=== PATIENT | female | born 1940 | race Caucasian/White ===

== ENCOUNTER 2017-11-26 20:25 | Inpatient (IN) | payer MEDICARE, BC ==
--- NOTE | 2017-11-26 21:08 | EDM.PDOC ---
ED HPI GENERAL MEDICAL PROBLEM - General Chief Complaint: General Stated Complaint: FELL Time Seen by Provider: 11/26/17 20:44 Source of Information: Reports: Patient, Family, RN Notes Reviewed History Limitations: Reports: Physical Impairment - History of Present Illness INITIAL COMMENTS - FREE TEXT/NARRATIVE: 77-year-old female presents emergency department today via EMS services after being found at home on the ground. Family member are present. No murmurs states she's been confused for the last couple of years prior state of confusion is close to baseline there unknown how long she is been down on the ground she is complaining of nothing however does have a bruise on her right arm she is orientated to self only, the majority of this history and physical was taken from EMS and family members, last visit to a physician was 4 years ago - Related Data Allergies Allergy/AdvReac Type Severity Reaction Status Date / Time No Known Allergies Allergy Verified 11/26/17 20:48 Home Meds: Home Meds NK [No Known Home Meds] 11/26/17 [History] Past Medical History Respiratory History: Reports: COPD Genitourinary History: Reports: Urinary Incontinence [employer] History: Reports: Musculoskeletal History: Reports: Back Pain, Chronic, Osteoporosis Other Musculoskeletal History: degenerative joint disease Social & Family History - Tobacco Use Smoking Status *Q: Unknown Ever Smoked ED ROS GENERAL - Review of Systems Review Of Systems: Unable To Obtain ED EXAM, GENERAL - Physical Exam Exam: See Below Free Text/Narrative:: General: Elderly female pleasant and cooperative not in any distress, alert and oriented one HEENT: head is atraumatic normocephalic, eyes pupils equal round reactive to light, sclera clear no conjunctivitis appreciated. Ears blocked by cerumen bilaterally canals are clear. Nose no septal deviation, nares are clear , no blood present. Mouth mucosa is dry and pink no erythema or exudate noted in soft palate, tongue is midline uvula is midline, dentition is intact. Neck: Supple no thyromegaly no tracheal deviation. Nodes: Cervical nodes subclavicular nodes nontender no palpable lymphadenopathy noted. Lungs: Decreased breath sounds with scant wheeze mid to lower lung cas[place] bilaterally on expiratory phase CV: Regular rate and rhythm S1 and S2 appreciated no murmurs rubs or gallops noted. Abdomen: Soft, nontender, no palpable masses or organomegaly appreciated, no distention no guarding bowel sounds are present, . Neuro: Cranial nerves II through XII grossly intact Skin: Warm and dry, intact Extremities: No lower extremity edema appreciated, pedal pulse is +2. Course - Vital Signs Last Recorded V/S: Last Vital Signs Temp 97.7 F 11/26/17 20:32 Pulse 107 H 11/26/17 22:46 Resp 16 11/26/17 20:32 BP 129/75 11/26/17 22:46 Pulse Ox 91 L 11/26/17 22:46 - Orders/Labs/Meds Orders: Active Orders 24 hr Category Date Time Status Chest 1V Frontal [CR] Urgent Exams 11/26/17 21:06 Taken Forearm 2V Rt [CR] Stat Exams 11/26/17 21:02 Taken Head wo Cont [CT] Urgent Exams 11/26/17 21:00 Taken CULTURE BLOOD [BC] Urgent Lab 11/26/17 23:00 Ordered CULTURE BLOOD [BC] Urgent Lab 11/26/17 23:00 Ordered CULTURE URINE [RM] Urgent Lab 11/26/17 22:59 Ordered Levofloxacin/Dextrose 5%-Water [Levaquin in D5W 500 MG/ Med 11/26/17 22:59 Ordered 100 ML] 500 mg Premix Bag 1 bag IV ONETIME Blood Culture x2 Reflex Set [OM.PC] Urgent Oth 11/26/17 23:00 Ordered Medication Orders Levofloxacin/Dextrose 500 mg/ (Premix) 100 mls @ 100 mls/hr IV ONETIME ONE Stop: 11/26/17 23:58 Labs: Laboratory Tests 11/26/17 11/26/17 11/26/17 Range/Units 21:52 21:52 21:52 WBC 8.5 (4.5-11.0) K/uL RBC 4.53 (3.30-5.50) M/uL Hgb 14.2 (12.0-15.0) g/dL Hct 45.0 (36.0-48.0) % MCV 99 H (80-98) fL MCH 31 (27-31) pg MCHC 32 (32-36) % Plt Count 389 (150-400) K/uL Neut % (Auto) 79 H (36-66) % Lymph % (Auto) 11 L (24-44) % [place] % (Auto) 9 H (2-6) % Eos % (Auto) 0 L (2-4) % Baso % (Auto) 0 (0-1) % Sodium 144 (140-148) mmol/L Potassium 3.8 (3.6-5.2) mmol/L Chloride 106 (100-108) mmol/L Carbon Dioxide 28 (21-32) mmol/L Anion Gap 9.7 (5.0-14.0) mmol/L BUN 46 H (7-18) mg/dL Creatinine 1.0 (0.6-1.0) mg/dL Est Cr Clr Drug Dosing 41.33 mL/min Estimated GFR (MDRD) 54 L (>60) Glucose 116 H (74-106) mg/dL Lactic Acid (0.4-2.0) mmol/L Calcium 9.5 (8.5-10.1) mg/dL Total Bilirubin 0.6 (0.2-1.0) mg/dL AST 34 (15-37) U/L ALT 35 (12-78) U/L Alkaline Phosphatase 75 (46-116) U/L Ammonia 2 L (11-32) mmol/L Creatine Kinase (26-192) U/L Total Protein 7.9 (6.4-8.2) g/dL Albumin 3.7 (3.4-5.0) g/dL Globulin 4.2 H (2.3-3.5) g/dL Albumin/Globulin Ratio 0.9 L (1.2-2.2) TSH, Ultra Sensitive 4.490 H (0.358-3.740) uIU/mL Urine Color Urine Appearance Urine pH (4.5-8.0) Ur Specific [place] (1.008-1.030) Urine Protein (NEGATIVE) mg/dL Urine Glucose (UA) (NEGATIVE) mg/dL Urine Ketones (NEGATIVE) mg/dL Urine Occult Blood (NEGATIVE) Urine Nitrite (NEGATIVE) Urine Bilirubin (NEGATIVE) Urine Urobilinogen (NORMAL) mg/dL Ur Leukocyte Esterase (NEGATIVE) Urine RBC (0-5) Urine WBC (0-5) Ur Epithelial Cells Amorphous Sediment Urine Bacteria Urine Mucus Urine Other 11/26/17 11/26/17 11/26/17 Range/Units 21:52 21:52 21:56 WBC (4.5-11.0) K/uL RBC (3.30-5.50) M/uL Hgb (12.0-15.0) g/dL Hct (36.0-48.0) % MCV (80-98) fL MCH (27-31) pg MCHC (32-36) % Plt Count (150-400) K/uL Neut % (Auto) (36-66) % Lymph % (Auto) (24-44) % [place] % (Auto) (2-6) % Eos % (Auto) (2-4) % Baso % (Auto) (0-1) % Sodium (140-148) mmol/L Potassium (3.6-5.2) mmol/L Chloride (100-108) mmol/L Carbon Dioxide (21-32) mmol/L Anion Gap (5.0-14.0) mmol/L BUN (7-18) mg/dL Creatinine (0.6-1.0) mg/dL Est Cr Clr Drug Dosing mL/min Estimated GFR (MDRD) (>60) Glucose (74-106) mg/dL Lactic Acid 2.2 H (0.4-2.0) mmol/L Calcium (8.5-10.1) mg/dL Total Bilirubin (0.2-1.0) mg/dL AST (15-37) U/L ALT (12-78) U/L Alkaline Phosphatase (46-116) U/L Ammonia (11-32) mmol/L Creatine Kinase 510 H (26-192) U/L Total Protein (6.4-8.2) g/dL Albumin (3.4-5.0) g/dL Globulin (2.3-3.5) g/dL Albumin/Globulin Ratio (1.2-2.2) TSH, Ultra Sensitive (0.358-3.740) uIU/mL Urine Color Yellow Urine Appearance Clear Urine pH 5.0 (4.5-8.0) Ur Specific [place] 1.020 (1.008-1.030) Urine Protein 30 H (NEGATIVE) mg/dL Urine Glucose (UA) Normal (NEGATIVE) mg/dL Urine Ketones 40 (NEGATIVE) mg/dL Urine Occult Blood Small (NEGATIVE) Urine Nitrite Positive H (NEGATIVE) Urine Bilirubin Small (NEGATIVE) Urine Urobilinogen Normal (NORMAL) mg/dL Ur Leukocyte Esterase Small (NEGATIVE) Urine RBC 0-5 (0-5) Urine WBC 5-10 H (0-5) Ur Epithelial Cells Few Amorphous Sediment Few Urine Bacteria Many Urine Mucus Few Urine Other See note Meds: Medications Generic Name Dose Route Start Last Admin Trade Name Farhad PRN Reason Stop Dose Admin Levofloxacin/Dextrose 500 mg/ 100 mls @ 100 mls/hr 11/26/17 22:59 Premix IV 11/26/17 23:58 ONETIME ONE Departure - Departure Time of Disposition: 23:03 Disposition: Admitted As Inpatient 67 Condition: Fair Clinical Impression: UTI, Urinary tract infectious disease, Confusion Fall Qualifiers: Encounter type: initial encounter Qualified Code(s): W19.XXXA - Unspecified fall, initial encounter - Discharge Information Referrals: Trey Thomas MD [Primary Care Provider] - Forms: ED Department Discharge - My Orders Last 24 Hours: My Active Orders 11/26/17 21:00 Head wo Cont [CT] Urgent 11/26/17 21:02 Forearm 2V Rt [CR] Stat 11/26/17 21:06 Chest 1V Frontal [CR] Urgent 11/26/17 22:59 CULTURE URINE [RM] Urgent Levofloxacin/Dextrose 5%-Water [Levaquin in D5W 500 MG/100 ML] 500 mg Premix Bag 1 bag IV ONETIME 11/26/17 23:00 CULTURE BLOOD [BC] Urgent CULTURE BLOOD [BC] Urgent Blood Culture x2 Reflex Set [OM.PC] Urgent - Assessment/Plan Last 24 Hours: My Active Orders 11/26/17 21:00 Head wo Cont [CT] Urgent 11/26/17 21:02 Forearm 2V Rt [CR] Stat 11/26/17 21:06 Chest 1V Frontal [CR] Urgent 11/26/17 22:59 CULTURE URINE [RM] Urgent Levofloxacin/Dextrose 5%-Water [Levaquin in D5W 500 MG/100 ML] 500 mg Premix Bag 1 bag IV ONETIME 11/26/17 23:00 CULTURE BLOOD [BC] Urgent CULTURE BLOOD [BC] Urgent Blood Culture x2 Reflex Set [OM.PC] Urgent Plan: Assessment Acuity = acute Site and laterality = confusion with urinary tract infection Etiology = bacterial cause for urinary tract infection probable underlying chronic small vessel ischemic disease for confusion Manifestations = none Location of injury = Home Lab values = CBC unremarkable, lactic acid mildly elevated 2.2 consistent lactic acidosis, CK mildly elevated at 510 thyroid mildly elevated 4.49 probable hypothyroidism, urinalysis reveals positive nitrates 5-10 wbc's consists of pyuria and many bacteria cultures pending, CT scan of the head demonstrates no acute process but does have atrophy probably consistent with small vessel ischemic disease Plan Called discussed case with Dr. Dominguez physician aviation safety equipment technician he agreed to come and evaluate patient hospital plan is for admission she will be started on antibiotics of levofloxacin as well as IV fluids also placement will need to be addressed at a later date This note was dictated using [employer] voice recognition software please call with any questions on syntax or grammar.
[2017-11-26] MEDS ORDERED: Levofloxacin/Dextrose 5%-Water 500 MG in Premix Bag 1 BAG IV ONE (22:59)
[2017-11-26] MEDS ORDERED: Lactated Ringers 1,000 ML IV ONE (23:06)
[2017-11-26] MEDS ORDERED: Levofloxacin/Dextrose 5%-Water 500 MG in Premix Bag 1 BAG IV SCH (23:15)
--- NOTE | 2017-11-27 08:41 | CR ---
Forearm 2V Rt CLINICAL HISTORY: Pain, fall FINDINGS: There is no acute fracture within the forearm. There is some mild periarticular spurring a t the elbow. IMPRESSION: No fracture Mild degenerative changes
--- NOTE | 2017-11-27 09:02 | CR ---
CHEST: AP CLINICAL HISTORY:Wheezing COMPARISON:None FINDINGS: Heart size and pulmonary vascularity are normal. There are atherosclerotic changes in the aorta.. Some mild interstitial prominence which is likely chronic. Impression: No acute cardiopulmonary process
[2017-11-27] MEDS: cefTRIAXone 1 GM in Sodium Chloride 0.9% 50 ML IV SCH (10:52)
--- NOTE | 2017-11-27 11:53 | PCM.PN ---
- General Info Date of Service: 11/27/17 Subjective Update: Ms. Caldwell is a 77-year-old woman who was admitted through the emergency department early this morning by Dr. Dominguez. She had fallen at home and was found by family. CK level mildly elevated on admission. She reported some pain in her arm but x-rays are negative for any evidence of fracture. She has a history of progressive dementia and does not recall the circumstances of her fall. Because of dementia and is unable to provide specific information concerning symptoms or review of systems. - Patient Data Vitals - Most Recent: Last Vital Signs Temp 98.2 F 11/27/17 11:24 Pulse 91 11/27/17 11:24 Resp 17 11/27/17 11:24 BP 130/72 11/27/17 11:24 Pulse Ox 96 11/27/17 11:24 Weight - Most Recent: 174 lb I&O - Last 24 Hours: Intake & Output 11/26/17 11/27/17 11/27/17 22:59 06:59 14:59 Intake Total 100 Balance 100 Lab Results Last 24 Hours: Laboratory Results - last 24 hr 11/26/17 11/26/17 11/26/17 Range/Units 21:52 21:52 21:52 WBC 8.5 (4.5-11.0) K/uL RBC 4.53 (3.30-5.50) M/uL Hgb 14.2 (12.0-15.0) g/dL Hct 45.0 (36.0-48.0) % MCV 99 H (80-98) fL MCH 31 (27-31) pg MCHC 32 (32-36) % Plt Count 389 (150-400) K/uL Neut % (Auto) 79 H (36-66) % Lymph % (Auto) 11 L (24-44) % [place] % (Auto) 9 H (2-6) % Eos % (Auto) 0 L (2-4) % Baso % (Auto) 0 (0-1) % Sodium 144 (140-148) mmol/L Potassium 3.8 (3.6-5.2) mmol/L Chloride 106 (100-108) mmol/L Carbon Dioxide 28 (21-32) mmol/L Anion Gap 9.7 (5.0-14.0) mmol/L BUN 46 H (7-18) mg/dL Creatinine 1.0 (0.6-1.0) mg/dL Est Cr Clr Drug Dosing 41.33 mL/min Estimated GFR (MDRD) 54 L (>60) Glucose 116 H (74-106) mg/dL Lactic Acid (0.4-2.0) mmol/L Calcium 9.5 (8.5-10.1) mg/dL Total Bilirubin 0.6 (0.2-1.0) mg/dL AST 34 (15-37) U/L ALT 35 (12-78) U/L Alkaline Phosphatase 75 (46-116) U/L Ammonia 2 L (11-32) mmol/L Creatine Kinase (26-192) U/L Total Protein 7.9 (6.4-8.2) g/dL Albumin 3.7 (3.4-5.0) g/dL Globulin 4.2 H (2.3-3.5) g/dL Albumin/Globulin Ratio 0.9 L (1.2-2.2) TSH, Ultra Sensitive 4.490 H (0.358-3.740) uIU/mL Urine Color Urine Appearance Urine pH (4.5-8.0) Ur Specific [place] (1.008-1.030) Urine Protein (NEGATIVE) mg/dL Urine Glucose (UA) (NEGATIVE) mg/dL Urine Ketones (NEGATIVE) mg/dL Urine Occult Blood (NEGATIVE) Urine Nitrite (NEGATIVE) Urine Bilirubin (NEGATIVE) Urine Urobilinogen (NORMAL) mg/dL Ur Leukocyte Esterase (NEGATIVE) Urine RBC (0-5) Urine WBC (0-5) Ur Epithelial Cells Amorphous Sediment Urine Bacteria Urine Mucus Urine Other 11/26/17 11/26/17 11/26/17 Range/Units 21:52 21:52 21:56 WBC (4.5-11.0) K/uL RBC (3.30-5.50) M/uL Hgb (12.0-15.0) g/dL Hct (36.0-48.0) % MCV (80-98) fL MCH (27-31) pg MCHC (32-36) % Plt Count (150-400) K/uL Neut % (Auto) (36-66) % Lymph % (Auto) (24-44) % [place] % (Auto) (2-6) % Eos % (Auto) (2-4) % Baso % (Auto) (0-1) % Sodium (140-148) mmol/L Potassium (3.6-5.2) mmol/L Chloride (100-108) mmol/L Carbon Dioxide (21-32) mmol/L Anion Gap (5.0-14.0) mmol/L BUN (7-18) mg/dL Creatinine (0.6-1.0) mg/dL Est Cr Clr Drug Dosing mL/min Estimated GFR (MDRD) (>60) Glucose (74-106) mg/dL Lactic Acid 2.2 H (0.4-2.0) mmol/L Calcium (8.5-10.1) mg/dL Total Bilirubin (0.2-1.0) mg/dL AST (15-37) U/L ALT (12-78) U/L Alkaline Phosphatase (46-116) U/L Ammonia (11-32) mmol/L Creatine Kinase 510 H (26-192) U/L Total Protein (6.4-8.2) g/dL Albumin (3.4-5.0) g/dL Globulin (2.3-3.5) g/dL Albumin/Globulin Ratio (1.2-2.2) TSH, Ultra Sensitive (0.358-3.740) uIU/mL Urine Color Yellow Urine Appearance Clear Urine pH 5.0 (4.5-8.0) Ur Specific [place] 1.020 (1.008-1.030) Urine Protein 30 H (NEGATIVE) mg/dL Urine Glucose (UA) Normal (NEGATIVE) mg/dL Urine Ketones 40 (NEGATIVE) mg/dL Urine Occult Blood Small (NEGATIVE) Urine Nitrite Positive H (NEGATIVE) Urine Bilirubin Small (NEGATIVE) Urine Urobilinogen Normal (NORMAL) mg/dL Ur Leukocyte Esterase Small (NEGATIVE) Urine RBC 0-5 (0-5) Urine WBC 5-10 H (0-5) Ur Epithelial Cells Few Amorphous Sediment Few Urine Bacteria Many Urine Mucus Few Urine Other See note Med Orders - Current: Current Medications Aspirin (Ecotrin) 325 mg PO DAILY GIANNI Diphtheria/Tetanus/Acell Pertussis (Adacel) 0.5 ml IM .ONCE ONE Stop: 11/28/17 09:01 Ceftriaxone Sodium 1 gm/ (Sodium Chloride) 50 mls @ 100 mls/hr IV Q24H REPLACED BY [facility] Last Admin: 11/27/17 10:52 Dose: 100 mls/hr Discontinued Medications Levofloxacin/Dextrose 500 mg/ (Premix) 100 mls @ 100 mls/hr IV ONETIME ONE Stop: 11/26/17 23:58 Last Admin: 11/27/17 00:34 Dose: Not Given Lactated Ringer's (Ringers, Lactated) 1,000 mls @ 100 mls/hr IV BOLUS ONE Stop: 11/27/17 09:05 Last Admin: 11/27/17 00:20 Dose: 100 mls/hr Levofloxacin/Dextrose 500 mg/ (Premix) 100 mls @ 100 mls/hr IV Q24H REPLACED BY [facility] Last Admin: 11/27/17 00:20 Dose: 100 mls/hr Influenza Virus Vaccine (Pharmacy To Dose - Influenza Vaccine) 1 each IM ONETIME ONE Stop: 11/28/17 01:18 - Exam Quality Assessment: DVT Prophylaxis General: Alert, Cooperative, No Acute Distress Lungs: Clear to Auscultation, Normal Respiratory Effort Cardiovascular: Regular Rate, Regular Rhythm, No Murmurs GI/Abdominal Exam: Soft, Non-Tender, No Organomegaly, No Distention - Problem List Review Problem List Initiated/Reviewed/Updated: Yes - My Orders Last 24 Hours: My Active Orders 11/27/17 01:18 Vaccines to be Administered [RC] PER UNIT ROUTINE 11/27/17 10:30 cefTRIAXone [Rocephin] 1 gm Sodium Chloride 0.9% [Normal Saline] 50 ml IV Q24H 11/28/17 09:00 Aspirin [Ecotrin] 325 mg PO DAILY Diphth,Pertuss(Acell),Tet Vac [Adacel] 0.5 ml IM .ONCE ONE - Plan Plan:: ASSESSMENT AND PLAN FALL AT HOME-associated with mild elevation in CK, no other obvious injuries identified on evaluation. -May require retirement placement on discharge -Repeat CK level in a.m. PROGRESSIVE DEMENTIA -Melatonin 9 mg by mouth daily at bedtime URINARY TRACT INFECTION -Discontinue levofloxacin -Ceftriaxone 1 g IV every 24 hours -Urine culture pending MILD ELEVATION IN TSH -Free T4 and free T3 level in a.m. MAINTENANCE ISSUES -DVT prophylaxis; Lovenox 40 mg subcutaneous daily -GI prophylaxis; not indicated -Weeks catheter; not indicated -Nutrition; regular diet -Nicotine dependence; not required CODE STATUS-FULL CODE ADMISSION STATUS-patient will be admitted to inpatient status, expect at least a 2 night hospital stay for evaluation and management of problems as outlined above. At the time of this admission I do not reasonably expected evaluation and management of this problem will require more than a 96 hour hospital stay. DISPOSITION-anticipate discharge to home after the hospital stay. PRIMARY CARE PROVIDER-Dr. Thomas
--- NOTE | 2017-11-27 13:27 | HP ---
CHIEF COMPLAINT: Was found on the ground, lying on the ground by family with confusion. HISTORY OF PRESENT ILLNESS: A 77-year-old, who apparently was found by family on the ground at her home and was brought in by ambulance, was evaluated by an emergency room physician, was noted to be quite confused. Apparently, her last visit to a physician was 4 years ago. She denied any specific complaints, but with her confusion, they did do a CT scan of her brain which showed age-related small-vessel ischemic change. Urinalysis did show a possibility of urinary tract infection. I was asked to admit the patient for further evaluation and treatment, possible placement, active treatment of her urinary tract infection. The patient when I saw her complained of some abdominal pain, it was more in the lower abdomen, but no nausea or vomiting. No report of any diarrhea, constipation, bloody or black stools, but she is quite confused, and I am not sure if she is a very good historian at this point. PAST MEDICAL HISTORY: Taken from family report and records showed: 1. COPD. 2. History of urinary incontinence. 3. History of degenerative joint disease with chronic back pain. 4. Osteoporosis. MEDICATIONS: None. ALLERGIES: NO KNOWN DRUG ALLERGIES. SOCIAL HISTORY: It sounds like she smoked, but I am not sure if she has been continued active smoker, it looks more in the past. FAMILY HISTORY: Unable to obtain. REVIEW OF SYSTEMS: Very difficult. She complained when I asked her about pain of lower abdominal discomfort. She denies any chest pain or shortness of breath, but she does have nasal cannula at this time with supplemental oxygen. Denied any extremity pain. OBJECTIVE: VITAL SIGNS: Temperature 37.4, pulse 107, blood pressure 129/75, and O2 saturation 91% on room air and has been on 2-3 L 94% to 97%. GENERAL: The patient is confused. She does report her name and that is about all as far as orientation. HEENT: Pharynx clear. NECK: Supple. No adenopathy. No masses, JVD, or carotid bruits. LUNGS: Clear. HEART: Regular without murmurs. ABDOMEN: Soft. No distention. When I pushed on her lower abdomen, she only complained of a mild pain. There is no mass or organomegaly palpated. EXTREMITIES: She does have some bruising on the right arm. No swelling. Pedal pulses are palpable and equal bilaterally. Skin was otherwise unremarkable. No report of any pain with palpation of her upper or lower extremities. NEUROLOGIC: She is quite confused, which makes neuro exam quite difficult to get appropriate responses. LABORATORY DATA: A CT scan showed age-related small vessel ischemic change per emergency room physician. No definite fracture seen on forearm x-ray. Chest x-ray was unremarkable. White count 8.5, hemoglobin 14.2, platelets 389,000. Sodium 144, potassium 3.8, chloride 106, BUN was 46, creatinine 1.0, glucose 116. Liver functions were normal. Ammonia was 2. CPK was 510. TSH was slightly high at 4.490. Urinalysis, positive nitrites, 5-10 white cells, many bacteria. Cultures pending with blood cultures. ASSESSMENT: 1. Confusion. Admitted to the hospital. Transfer her care to the hospitalist service. Exact etiology of her confusion is unknown and difficult to know how long it has been building, but question if it has been for the last few years since she has not seen a doctor in 4 years. 2. Urinary tract infection. She was started on IV Levaquin in the emergency room, which we will continue pending culture results. 3. Probable smoker in the past with report of chronic obstructive pulmonary disease. 4. Degenerative joint disease with chronic back pain. Navarro Dominguez MD /[id number]
[2017-11-27] MEDS: Enoxaparin 40 MG/0.4 ML Syringe SUBCUT SCH (14:14)
[2017-11-27] MEDS: Melatonin 3 MG Tab PO SCH (20:03)
[2017-11-28] MEDS ORDERED: Diphtheria,Pertussis(Acell),Tetanus Vaccine 0.5 ML SDV IM ONE (09:00)
[2017-11-28] MEDS: Aspirin 325 MG Tab.EC PO SCH (09:16)
[2017-11-28] MEDS: cefTRIAXone 1 GM in Sodium Chloride 0.9% 50 ML IV SCH (10:36)
--- NOTE | 2017-11-28 12:05 | PCM.PN ---
- General Info Date of Service: 11/28/17 Subjective Update: Ms. Caldwell is been fairly stable since yesterday, denies significant pain this morning. Vital signs have been stable and she has remained afebrile. CK level is improved from admission. Urine culture growing out gram-negative timothy final ID and sensitivities are pending. - Review of Systems General: Reports: Weakness. Denies: Fever, Chills Pulmonary: Reports: No Symptoms Cardiovascular: Reports: No Symptoms Gastrointestinal: Reports: No Symptoms Musculoskeletal: Reports: No Symptoms - Patient Data Vitals - Most Recent: Last Vital Signs Temp 98.3 F 11/28/17 11:14 Pulse 94 11/28/17 11:14 Resp 20 11/28/17 11:14 BP 112/48 L 11/28/17 11:14 Pulse Ox 96 11/28/17 11:14 Weight - Most Recent: 390 lb 3.491 oz I&O - Last 24 Hours: Intake & Output 11/27/17 11/28/17 11/28/17 22:59 06:59 14:59 Intake Total 475 50 Output Total 200 Balance 275 50 Lab Results Last 24 Hours: Laboratory Results - last 24 hr 11/28/17 11/28/17 Range/Units 05:30 05:30 Sodium 144 (140-148) mmol/L Potassium 3.9 (3.6-5.2) mmol/L Chloride 108 (100-108) mmol/L Carbon Dioxide 30 (21-32) mmol/L Anion Gap 6.5 (5.0-14.0) mmol/L BUN 34 H (7-18) mg/dL Creatinine 0.9 (0.6-1.0) mg/dL Est Cr Clr Drug Dosing 57.66 mL/min Estimated GFR (MDRD) > 60 (>60) Glucose 105 (74-106) mg/dL Calcium 8.5 (8.5-10.1) mg/dL Creatine Kinase 267 H (26-192) U/L Free T4 0.93 (0.76-1.46) ng/dL Free T3 2.36 (2.18-3.98) pg/dL Freddy Results Last 24 Hours: Microbiology 11/26/17 22:20 Urine Culture - Preliminary Urine, Catheterized 11/26/17 00:20 Aerobic Blood Culture - Preliminary Blood - Venous - Iv Start NO GROWTH AFTER 1 DAY Anaerobic Blood Culture - Preliminary NO GROWTH AFTER 1 DAY 11/26/17 23:00 Aerobic Blood Culture - Preliminary Blood - Venous NO GROWTH AFTER 1 DAY Anaerobic Blood Culture - Preliminary NO GROWTH AFTER 1 DAY Med Orders - Current: Current Medications Aspirin (Ecotrin) 325 mg PO DAILY [facility] Last Admin: 11/28/17 09:16 Dose: 325 mg Enoxaparin Sodium (Lovenox) 40 mg SUBCUT DAILY@1400 [facility] Last Admin: 11/27/17 14:14 Dose: 40 mg Ceftriaxone Sodium 1 gm/ (Sodium Chloride) 50 mls @ 100 mls/hr IV Q24H [facility] Last Admin: 11/28/17 10:36 Dose: 100 mls/hr Melatonin (Melatonin) 9 mg PO BEDTIME [facility] Last Admin: 11/27/17 20:03 Dose: 9 mg Discontinued Medications Diphtheria/Tetanus/Acell Pertussis (Adacel) 0.5 ml IM .ONCE ONE Stop: 11/28/17 09:01 Last Admin: 11/28/17 10:01 Dose: 0.5 ml Levofloxacin/Dextrose 500 mg/ (Premix) 100 mls @ 100 mls/hr IV ONETIME ONE Stop: 11/26/17 23:58 Last Admin: 11/27/17 00:34 Dose: Not Given Lactated Ringer's (Ringers, Lactated) 1,000 mls @ 100 mls/hr IV BOLUS ONE Stop: 11/27/17 09:05 Last Admin: 11/27/17 00:20 Dose: 100 mls/hr Levofloxacin/Dextrose 500 mg/ (Premix) 100 mls @ 100 mls/hr IV Q24H [facility] Last Admin: 11/27/17 00:20 Dose: 100 mls/hr Influenza Virus Vaccine (Pharmacy To Dose - Influenza Vaccine) 1 each IM ONETIME ONE Stop: 11/28/17 01:18 - Exam Quality Assessment: DVT Prophylaxis General: Alert, Cooperative, No Acute Distress. No: Oriented Lungs: Clear to Auscultation, Normal Respiratory Effort Cardiovascular: Regular Rate, Regular Rhythm, Murmurs GI/Abdominal Exam: Soft, Non-Tender, No Organomegaly, No Distention Extremities: Non-Tender, No Pedal Edema - Problem List Review Problem List Initiated/Reviewed/Updated: Yes - My Orders Last 24 Hours: My Active Orders 11/27/17 14:00 Enoxaparin [Lovenox] 40 mg SUBCUT DAILY@1400 11/27/17 21:00 Melatonin 9 mg PO BEDTIME 11/28/17 09:00 Aspirin [Ecotrin] 325 mg PO DAILY - Plan Plan:: ASSESSMENT AND PLAN FALL AT HOME-associated with mild elevation in CK, no other obvious injuries identified on evaluation. CK level improved from admission -Will require care home placement on discharge PROGRESSIVE DEMENTIA -Melatonin 9 mg by mouth daily at bedtime URINARY TRACT INFECTION-urine culture growing gram-negative rods, final ID and sensitivities are pending -Ceftriaxone 1 g IV every 24 hours -Urine culture pending MILD ELEVATION IN TSH-free T3 and free T4 levels normal MAINTENANCE ISSUES -DVT prophylaxis; Lovenox 40 mg subcutaneous daily -GI prophylaxis; not indicated -Weeks catheter; not indicated -Nutrition; regular diet -Nicotine dependence; not required CODE STATUS-FULL CODE ADMISSION STATUS-patient will be admitted to inpatient status, expect at least a 2 night hospital stay for evaluation and management of problems as outlined above. At the time of this admission I do not reasonably expected evaluation and management of this problem will require more than a 96 hour hospital stay. DISPOSITION-anticipate discharge to home after the hospital stay. PRIMARY CARE PROVIDER-Dr. Thomas
[2017-11-28] MEDS: Enoxaparin 40 MG/0.4 ML Syringe SUBCUT SCH (13:39)
[2017-11-28] MEDS: Melatonin 3 MG Tab PO SCH (20:41)
[2017-11-29] MEDS: Aspirin 325 MG Tab.EC PO SCH (09:25)
[2017-11-29] MEDS: cefTRIAXone 1 GM in Sodium Chloride 0.9% 50 ML IV SCH (09:50)
--- NOTE | 2017-11-29 10:37 | PCM.DCSUM1 ---
Discharge Summary - Hospital Course Brief History: Ms. Caldwell is a 77-year-old woman who had fallen at home and was found on the floor by family. She was admitted through the emergency department with urinary tract infection and mild elevation in CPK. - Discharge Data Discharge Date: 11/29/17 Discharge Disposition: DC/Tfer to SNF 03 Condition: Fair - Discharge Diagnosis/Problem(s) (1) Dementia SNOMED Code(s): 58118014 ICD Code: F03.90 - UNSPECIFIED DEMENTIA WITHOUT BEHAVIORAL DISTURBANCE Status: Acute Current Visit: Yes (2) UTI, Urinary tract infectious disease SNOMED Code(s): 86110569 ICD Code: N39.0 - URINARY TRACT INFECTION, SITE NOT SPECIFIED Status: Acute Current Visit: Yes (3) Fall SNOMED Code(s): 1476345, 251515959 ICD Code: W19.XXXA - UNSPECIFIED FALL, INITIAL ENCOUNTER Status: Acute Current Visit: Yes Qualifiers: Encounter type: initial encounter Qualified Code(s): W19.XXXA - Unspecified fall, initial encounter (4) COPD (chronic obstructive pulmonary disease) SNOMED Code(s): 37993269 ICD Code: J44.9 - CHRONIC OBSTRUCTIVE PULMONARY DISEASE, UNSPECIFIED Status : Chronic Current Visit: No - Patient Summary/Data Hospital Course: Ms. Caldwell is a 77-year-old woman with a known history of oxygen-dependent COPD as well as progressive dementia. She had been failing over the past few months with increased weakness and confusion. On the evening of admission was found on the floor by family who was brought into the emergency department for further evaluation. On assessment in the emergency department was found to have evidence of urinary tract infection, blood and urine cultures were obtained. CPK level was found to be mildly elevated. She was admitted to the hospital for antibiotic therapy for urinary tract infection as well as IV fluids for hydration and monitoring of EKG level. On admission she was given IV fluids and started on IV antibiotic therapy. CPK level improved during hospitalization and IV fluids were discontinued. Urine culture grew out Escherichia coli which was found to be pansensitive. She will be discharged home on additional 2 days of oral antibiotic therapy with Septra DS 1 by mouth twice a day. Because of her weakness and confusion she's not felt to be safe at home and was kept in the hospital until a safe discharge plan could be accomplished. She will be discharged to the senior care for restorative physical therapy as well as occupational therapy. Activity will be as tolerated and she will resume her usual diet. - Patient Instructions Diet: Usual Diet as Tolerated Activity: As Tolerated Other/Special Instructions: Discharge to senior care for restorative physical therapy and occupational therapy - Discharge Plan *PRESCRIPTION DRUG MONITORING PROGRAM REVIEWED*: Not Applicable *COPY OF PRESCRIPTION DRUG MONITORING REPORT IN PATIENT NHAN: Not Applicable Prescriptions/Med Rec: Sulfamethoxazole/Trimethoprim [Septra DS] 1 each PO BID #4 tab Home Medications: Home Meds Aspirin [Ecotrin] 325 mg PO DAILY 11/27/17 [History] guaiFENesin [Mucinex] 600 mg PO DAILY PRN 11/27/17 [History] Sulfamethoxazole/Trimethoprim [Septra DS] 1 each PO BID #4 tab 11/29/17 [Rx] Referrals: Trey Thomas MD [Primary Care Provider] - - Discharge Summary/Plan Comment DC Time >30 min.: No - Patient Data Vitals - Most Recent: Last Vital Signs Temp 98.9 F 11/29/17 07:18 Pulse 88 11/29/17 07:18 Resp 16 11/29/17 07:18 BP 141/69 H 11/29/17 07:18 Pulse Ox 97 11/29/17 07:18 Weight - Most Recent: 390 lb 3.491 oz I&O - Last 24 hours: Intake & Output 11/28/17 11/29/17 11/29/17 22:59 06:59 14:59 Intake Total 560 240 Balance 560 240 [place] Results - Last 24 hrs: Microbiology 11/26/17 22:20 Urine Culture - Final Urine, Catheterized Escherichia Coli 11/26/17 00:20 Aerobic Blood Culture - Preliminary Blood - Venous - Iv Start NO GROWTH AFTER 2 DAYS Anaerobic Blood Culture - Preliminary NO GROWTH AFTER 2 DAYS 11/26/17 23:00 Aerobic Blood Culture - Preliminary Blood - Venous NO GROWTH AFTER 2 DAYS Anaerobic Blood Culture - Preliminary NO GROWTH AFTER 2 DAYS Med Orders - Current: Current Medications Aspirin (Ecotrin) 325 mg PO DAILY [facility] Last Admin: 11/29/17 09:25 Dose: 325 mg Enoxaparin Sodium (Lovenox) 40 mg SUBCUT DAILY@1400 [facility] Last Admin: 11/28/17 13:39 Dose: 40 mg Ceftriaxone Sodium 1 gm/ (Sodium Chloride) 50 mls @ 100 mls/hr IV Q24H [facility] Last Admin: 11/29/17 09:50 Dose: 100 mls/hr Melatonin (Melatonin) 9 mg PO BEDTIME [facility] Last Admin: 11/28/17 20:41 Dose: 9 mg Discontinued Medications Diphtheria/Tetanus/Acell Pertussis (Adacel) 0.5 ml IM .ONCE ONE Stop: 11/28/17 09:01 Last Admin: 11/28/17 10:01 Dose: 0.5 ml Levofloxacin/Dextrose 500 mg/ (Premix) 100 mls @ 100 mls/hr IV ONETIME ONE Stop: 11/26/17 23:58 Last Admin: 11/27/17 00:34 Dose: Not Given Lactated Ringer's (Ringers, Lactated) 1,000 mls @ 100 mls/hr IV BOLUS ONE Stop: 11/27/17 09:05 Last Admin: 11/27/17 00:20 Dose: 100 mls/hr Levofloxacin/Dextrose 500 mg/ (Premix) 100 mls @ 100 mls/hr IV Q24H [facility] Last Admin: 11/27/17 00:20 Dose: 100 mls/hr Influenza Virus Vaccine (Pharmacy To Dose - Influenza Vaccine) 1 each IM ONETIME ONE Stop: 11/28/17 01:18 - Exam Quality Assessment: Reports: Supplemental Oxygen, DVT Prophylaxis General: Reports: Alert, Cooperative, No Acute Distress Lungs: Reports: Decreased Breath Sounds. Denies: Rales, Rhonchi, Wheezing Cardiovascular: Reports: Regular Rate, Regular Rhythm, No Murmurs GI/Abdominal Exam: Soft, Non-Tender, No Organomegaly, No Distention
== END 2017-11-29 11:06 | DRG 690 ==
LOC: JP.ED 20:25 → JP.MS 23:04
PROVIDERS: ADMIT Family Medicine; ATTEND Hospitalist
PROC: 3E02340 Introduction of Influenza Vaccine into Muscle, Percutaneous Approach (ICD-10-PCS; principal; 2017-11-27)
PROC: 3E0234Z Introduction of Serum, Toxoid and Vaccine into Muscle, Percutaneous Approach (ICD-10-PCS; 2017-11-27)
DX: N39.0 Urinary tract infection, site not specified (principal); R41.0 Disorientation, unspecified; E87.2 Acidosis; S40.021A Contusion of right upper arm, initial encounter; W19.XXXA Unspecified fall, initial encounter; J44.9 Chronic obstructive pulmonary disease, unspecified; R32 Unspecified urinary incontinence; M19.90 Unspecified osteoarthritis, unspecified site; G89.29 Other chronic pain; M54.9 Dorsalgia, unspecified; M81.0 Age-related osteoporosis without current pathological fracture; Z87.891 Personal history of nicotine dependence; F03.90 Unspecified dementia, unspecified severity, without behavioral disturbance, psychotic disturbance, mood disturbance, and anxiety; Z99.81 Dependence on supplemental oxygen; B96.20 Unspecified Escherichia coli [E. coli] as the cause of diseases classified elsewhere; R53.1 Weakness; Z23 Encounter for immunization
CPT/HCPCS: 36415; 70450; 71045; 71045-26; 73090-26-RT; 73090-RT; 80048; 80053; 81001; 82140; 82550; 83605; 84439; 84443; 84481; 85025; 87040; 87086; 87088; 87186; 90471; 90662; 90715; 99285-25; A9270-GY; J0696; J1650; J1956; J7050; J7120